=== PATIENT | female | born 2000 ===

== ENCOUNTER 2023-09-18 13:42 | Emergency (ER) | payer SELFPAY ==
[~2023-09-18] VITALS: Ht 157.5 cm; Wt 49.2 kg
[2023-09-18 13:51] VITALS: BP 127/75; TEMP 98.6
[2023-09-18 16:38] VITALS: PULSE 97
== END 2023-09-18 16:38 | disposition home or self-care (01) ==
LOC: COL.ER 13:42
DX: Z32.01 Encounter for pregnancy test, result positive (principal)